=== PATIENT | male | born 1980 | race Caucasian/White ===

== ENCOUNTER 2018-05-27 04:55 | Emergency (ER) | payer BC, OTHER ==
[2018-05-27] MEDS ORDERED: METOCLOPRAMIDE 5 MG/ML 2 ML VIAL IVP STA (05:29)
[2018-05-27] MEDS ORDERED: diphenhydrAMINE 50 MG/ML 1 ML VIAL IVP STA (05:29)
[2018-05-27] MEDS ORDERED: KETOROLAC 30 MG/ML 1 ML VIAL IVP STA (05:29)
--- NOTE | 2018-05-27 05:45 | CT ---
EXAMINATION TYPE: CT brain wo con DATE OF EXAM: 05/27/2018 COMPARISON: 05/07/2013 HISTORY: Headache CT DLP: 1072.30 mGycm. Automated Exposure Control for Dose Reduction was Utilized. TECHNIQUE: CT scan of the head is performed without contrast. FINDINGS: Ventricles of normal size. There is no mass effect nor midline shift. There is no sign of i ntracranial hemorrhage. The calvarium is intact. IMPRESSION: Negative CT scan of the brain. No change.
--- NOTE | 2018-05-27 06:57 | ED ---
Headache HPI - General Chief Complaint: Headache Stated Complaint: headache Time Seen by Provider: 05/27/18 05:15 Mode of arrival: ambulatory Limitations: no limitations - History of Present Illness Initial Comments: This patient is a 37-year-old man who presents to be evaluated for headache. He has had symptoms going on 3 days now. He indicates the pain is at the left temporal area. It is severe, constant, throbbing in nature. He states that initially it was relieved when he was taking ibuprofen and a sinus pill. He states that the pain would go away for a few hours but then recur and then it would be relieved with medication again. He states that over the last night the home treatment stopped working and now he has had constant pain. He has not had fever or chills. No neck pain or stiffness. No neurologic symptoms. MD Complaint: headache Onset/Timin -: days(s) Onset Description: gradual, at rest Location: left, temporal Severity: severe Quality: throbbing Consistency: constant Improves With: medication, movement Worsens With: none Context: occurred at rest Associated Symptoms: nausea Treatments Prior to Arrival: Ibuprofen, other (Sinus medication) - Related Data Previous Rx's Medication Instructions Recorded Metoclopramide [Reglan] 10 mg PO TID PRN #12 tab 05/27/18 Allergies Allergy/AdvReac Type Severity Reaction Status Date / Time No Known Allergies Allergy Verified 05/27/18 05:03 Review of Systems ROS Statement: Those systems with pertinent positive or pertinent negative responses have been documented in the HPI. ROS Other: All systems not noted in ROS Statement are negative. Constitutional: Denies: fever, chills, weakness Eyes: Denies: vision change ENT: Denies: ear pain, congestion Respiratory: Denies: cough, dyspnea Cardiovascular: Denies: chest pain, syncope Gastrointestinal: Reports: nausea. Denies: abdominal pain, vomiting Musculoskeletal: Denies: back pain Skin: Denies: rash Neurological: Reports: headache. Denies: weakness, numbness, paresthesias, confusion Past Medical History Past Medical History: No Reported History History of Any Multi-Drug Resistant Organisms: None Reported Past Surgical History: No Surgical Hx Reported Past Psychological History: No Psychological Hx Reported Smoking Status: Current every day smoker Past Alcohol Use History: Rare Past Drug Use History: None Reported General Exam Limitations: no limitations General appearance: alert, in no apparent distress Head exam: Present: atraumatic, normocephalic Eye exam: Present: normal appearance, PERRL, EOMI. Absent: scleral icterus, conjunctival injection, nystagmus ENT exam: Present: normal oropharynx Neck exam: Present: normal inspection, full ROM. Absent: tenderness, meningismus Respiratory exam: Present: normal lung sounds bilaterally. Absent: respiratory distress, wheezes, rales, rhonchi, stridor Cardiovascular Exam: Present: regular rate, normal rhythm, normal heart sounds Back exam: Present: normal inspection, full ROM Neurological exam: Present: alert, oriented X3, CN II-XII intact, normal gait. Absent: motor sensory deficit Skin exam: Present: warm, dry, intact, normal color. Absent: rash Course Vital Signs 05/27/18 05:00 Temperature 98.4 F Pulse Rate 93 Respiratory 20 Rate Blood Pressure 133/95 O2 Sat by Pulse 97 Oximetry Medical Decision Making - Medical Decision Making Patient's 37-year-old man with headache. He has had resolution with medications and the computed tomography scan is negative. Patient declines further study and states she wants go home and sleep. Did discuss importance of further evaluation and follow up with neurology should any symptoms recur. Disposition Clinical Impression: Headache Disposition: HOME SELF-CARE Condition: Good Instructions: Acute Headache (ED) Prescriptions: Metoclopramide [Reglan] 10 mg PO TID PRN #12 tab PRN Reason: Headache Is patient prescribed a controlled substance at d/c from ED?: No Referrals: Mary Mathias MD [Primary Care Provider] - 1-2 days Cristina Melo MD [STAFF PHYSICIAN] - 1-2 days
[2018-05-27 07:12] VITALS: BP 111/61; PULSE 83; RESP 18; TEMP 98
== END 2018-05-27 07:12 | disposition home or self-care (01) ==
LOC: EC 04:55
DX: R51 Headache (principal); R11.0 Nausea; F17.200 Nicotine dependence, unspecified, uncomplicated
CPT/HCPCS: 70450; 96374; 96375; 99284

== ENCOUNTER 2019-01-03 13:12 | Emergency (ER) | payer OTHER ==
[2019-01-03 13:21] VITALS: TEMP 98.1
[2019-01-03 13:43] VITALS: RESP 18
--- NOTE | 2019-01-03 13:58 | ED ---
General Adult HPI - General Chief complaint: Neuro Symptoms/Deficit Stated complaint: lt sided facial numbness, hand tingling Time Seen by Provider: 01/03/19 13:43 Source: patient, RN notes reviewed Mode of arrival: ambulatory Limitations: no limitations - History of Present Illness Initial comments: Patient is a pleasant 38-year-old male presenting to the emergency Department with complaints of paresthesias. Onset of symptoms was around 9:30 this mo rning. Patient had paresthesias of his left shoulder region. Patient states following this symptoms did extend towards the left face as well as left arm and fingers. Patient states symptoms have improved however not resolved. Patient denies having any weakness. No confusion. No speech problems. Patient does have a history of similar symptoms dozens of times previously however does not normally last this long. Patient did look in the mere and has not noticed any weakness of the face. Patient denies any weakness of the arm. Patient denies any pain. - Related Data Home Medications Medication Instructions Recorded Confirmed No Known Home Medications 01/03/19 01/03/19 Allergies Allergy/AdvReac Type Severity Reaction Status Date / Time No Known Allergies Allergy Verified 01/03/19 13:27 Review of Systems ROS Statement: Those systems with pertinent positive or pertinent negative responses have been documented in the HPI. ROS Other: All systems not noted in ROS Statement are negative. Constitutional: Denies: fever Eyes: Denies: eye pain, vision change ENT: Denies: ear pain Respiratory: Denies: dyspnea Cardiovascular: Denies: chest pain Endocrine: Denies: fatigue Gastrointestinal: Denies: vomiting Genitourinary: Denies: dysuria Musculoskeletal: Denies: back pain Skin: Denies: rash Neurological: Denies: headache, weakness, numbness, confusion Past Medical History Past Medical History: No Reported History History of Any Multi-Drug Resistant Organisms: None Reported Past Surgical History: No Surgical Hx Reported Past Psychological History: No Psychological Hx Reported Smoking Status: Current every day smoker Past Alcohol Use History: Rare Past Drug Use History: None Reported General Exam Limitations: no limitations General appearance: alert, in no apparent distress Head exam: Present: atraumatic, normocephalic Eye exam: Present: normal appearance, PERRL, EOMI. Absent: nystagmus ENT exam: Present: normal oropharynx Neck exam: Present: normal inspection Respiratory exam: Present: normal lung sounds bilaterally Cardiovascular Exam: Present: regular rate, normal rhythm GI/Abdominal exam: Present: soft. Absent: tenderness Extremities exam: Present: normal inspection, full ROM. Absent: tenderness Neurological exam: Present: alert, CN II-XII intact. Absent: motor sensory deficit Expanded Neurological exam: Present: protecting the airway Speech: Present: fluid speech Cranial nerves: EOM's Intact: Normal, Facial Sensation: Normal Cerebellar function: Finger to Nose: Normal Sensory exam: Upper Extremity Light Touch: Normal, Lower Extremity Light Touch: Normal Motor strength exam: RUE: 5, LUE: 5, RLE: 5, LLE: 5 Eye Response: (4) open spontaneously Motor Response: (6) obeys commands Verbal Response: (5) oriented Psychiatric exam: Present: normal affect, normal mood Skin exam: Present: normal color Course Vital Signs 01/03/19 01/03/19 01/03/19 13:18 13:30 16:30 Temperature 98.1 F Pulse Rate 88 79 59 L Respiratory 20 18 18 Rate Blood Pressure 150/91 138/74 102/61 O2 Sat by Pulse 99 94 L 98 Oximetry EKG Findings - EKG Comments: EKG Findings:: Normal sinus rhythm 81. HI 172. QRS 96. QT 364. QTC 422. Normal axis. Normal QRS. No acute ST change. Medical Decision Making - Medical Decision Making Patient reevaluated and further improved. Symptoms are near resolved. Patient reevaluated and still has no weakness. Patient and family updated on results and need for follow-up. - Lab Data Result diagrams: 01/03/19 13:39 01/03/19 13:39 Lab Results 01/03/19 01/03/19 01/03/19 Range/Units 13:39 13:39 13:39 WBC (3.8-10.6) k/uL RBC (4.30-5.90) m/uL Hgb (13.0-17.5) gm/dL Hct (39.0-53.0) % MCV (80.0-100.0) fL MCH (25.0-35.0) pg MCHC (31.0-37.0) g/dL RDW (11.5-15.5) % Plt Count (150-450) k/uL Neutrophils % % Lymphocytes % % Monocytes % % Eosinophils % % Basophils % % Neutrophils # (1.3-7.7) k/uL Lymphocytes # (1.0-4.8) k/uL Monocytes # (0-1.0) k/uL Eosinophils # (0-0.7) k/uL Basophils # (0-0.2) k/uL PT 10.4 (9.0-12.0) sec INR 1.0 (<1.2) APTT 26.0 (22.0-30.0) sec Sodium 141 (137-145) mmol/L Potassium 4.4 (3.5-5.1) mmol/L Chloride 108 H (98-107) mmol/L Carbon Dioxide 24 (22-30) mmol/L Anion Gap 9 mmol/L BUN 10 (9-20) mg/dL Creatinine 1.05 (0.66-1.25) mg/dL Est GFR (CKD-EPI)AfAm >90 (>60 ml/min/1.73 sqM) Est GFR (CKD-EPI)NonAf 90 (>60 ml/min/1.73 sqM) Glucose 90 (74-99) mg/dL Calcium 9.5 (8.4-10.2) mg/dL Total Bilirubin 0.4 (0.2-1.3) mg/dL AST 18 (17-59) U/L ALT 23 (21-72) U/L Alkaline Phosphatase 77 (38-126) U/L Creatine Kinase 185 H (55-170) U/L Troponin I <0.012 (0.000-0.034) ng/mL Total Protein 6.9 (6.3-8.2) g/dL Albumin 4.3 (3.5-5.0) g/dL 01/03/19 Range/Units 13:39 WBC 6.5 (3.8-10.6) k/uL RBC 4.96 (4.30-5.90) m/uL Hgb 15.2 (13.0-17.5) gm/dL Hct 45.1 (39.0-53.0) % MCV 90.8 (80.0-100.0) fL MCH 30.5 (25.0-35.0) pg MCHC 33.6 (31.0-37.0) g/dL RDW 13.7 (11.5-15.5) % Plt Count 216 (150-450) k/uL Neutrophils % 66 % Lymphocytes % 25 % Monocytes % 5 % Eosinophils % 2 % Basophils % 1 % Neutrophils # 4.3 (1.3-7.7) k/uL Lymphocytes # 1.6 (1.0-4.8) k/uL Monocytes # 0.4 (0-1.0) k/uL Eosinophils # 0.1 (0-0.7) k/uL Basophils # 0.0 (0-0.2) k/uL PT (9.0-12.0) sec INR (<1.2) APTT (22.0-30.0) sec Sodium (137-145) mmol/L Potassium (3.5-5.1) mmol/L Chloride (98-107) mmol/L Carbon Dioxide (22-30) mmol/L Anion Gap mmol/L BUN (9-20) mg/dL Creatinine (0.66-1.25) mg/dL Est GFR (CKD-EPI)AfAm (>60 ml/min/1.73 sqM) Est GFR (CKD-EPI)NonAf (>60 ml/min/1.73 sqM) Glucose (74-99) mg/dL Calcium (8.4-10.2) mg/dL Total Bilirubin (0.2-1.3) mg/dL AST (17-59) U/L ALT (21-72) U/L Alkaline Phosphatase (38-126) U/L Creatine Kinase (55-170) U/L Troponin I (0.000-0.034) ng/mL Total Protein (6.3-8.2) g/dL Albumin (3.5-5.0) g/dL - Radiology Data Radiology results: report reviewed (Computed tomography scan of the brain reveals no acute process), image reviewed (Chest x-ray shows no acute process) Disposition Clinical Impression: Paresthesia Disposition: HOME SELF-CARE Instructions (If sedation given, give patient instructions): Paresthesia (ED) Additional Instructions: Please follow-up with primary care physician this week. Return for weakness, confusion, speech problems, worsening symptoms or other concerns. Is patient prescribed a controlled substance at d/c from ED?: No Referrals: Mary Mathias MD [Primary Care Provider] - 1-2 days Time of Disposition: 16:40
[2019-01-03 14:34] LABS: Basophils % (A) 1 %; Eosinophils # (A) 0.1 k/uL (0-0.7); Eosinophils % (A) 2 %; HCT 45.1 % (39.0-53.0); HGB 15.2 gm/dL (13.0-17.5); Lymphocytes # (A) 1.6 k/uL (1.0-4.8); Lymphocytes % (A) 25 %; MCH 30.5 pg (25.0-35.0); MCHC 33.6 g/dL (31.0-37.0); MCV 90.8 fL (80.0-100.0); Monocytes # (A) 0.4 k/uL (0-1.0); Monocytes % (A) 5 %; Neutrophils # (A) 4.3 k/uL (1.3-7.7); Neutrophils % (A) 66 %; Platelet Count 216 k/uL (150-450); RBC 4.96 m/uL (4.30-5.90); RDW 13.7 % (11.5-15.5); WBC 6.5 k/uL (3.8-10.6)
--- NOTE | 2019-01-03 14:37 | CT ---
EXAMINATION TYPE: CT brain wo con DATE OF EXAM: 01/03/2019 COMPARISON: 05/27/2018 HISTORY: Left sided facial and arm numbness CT DLP: 1099.4 mGycm. Automated Exposure Control for Dose Reduction was Utilized. TECHNIQUE: CT scan of the head is performed without contrast. FINDINGS: There is no acute intracranial hemorrhage, mass effect, or midline shift identified. The ventricles and sulci are within normal limits in size. The globes are intact and the visualized sin uses are clear. IMPRESSION: No acute intracranial hemorrhage, mass effect, or midline shift is seen. If there is con cern for acute ischemia correlate with MRI as clinically warranted.
[2019-01-03 14:42] LABS: ALT 23 U/L (21-72); AST 18 U/L (17-59); Albumin 4.3 g/dL (3.5-5.0); Alkaline Phosphatase 77 U/L (38-126); Anion Gap 9 mmol/L; Blood Urea Nitrogen 10 mg/dL (9-20); Calcium 9.5 mg/dL (8.4-10.2); Carbon Dioxide 24 mmol/L (22-30); Chloride 108 mmol/L (98-107); Creatine Kinase 185 U/L (55-170); Glucose 90 mg/dL (74-99); Potassium 4.4 mmol/L (3.5-5.1); Sodium 141 mmol/L (137-145); Total Bilirubin 0.4 mg/dL (0.2-1.3); Total Protein 6.9 g/dL (6.3-8.2)
--- NOTE | 2019-01-03 14:43 | XR ---
EXAMINATION TYPE: XR chest 2V DATE OF EXAM: 01/03/2019 COMPARISON: NONE HISTORY: Altered mental status TECHNIQUE: Frontal and lateral views of the chest are obtained. FINDINGS: There is no focal air space opacity, pleural effusion, or pneumothorax seen. The cardiac silhouette size is within normal limits. The osseous structures are intact. IMPRESSION: No acute cardiopulmonary process.
[2019-01-03 14:58] LABS: Prothrombin Time 10.4 sec (9.0-12.0)
[2019-01-03 16:30] VITALS: BP 102/61; PULSE 59
== END 2019-01-03 17:18 | disposition home or self-care (01) ==
LOC: EC 13:12
DX: R20.2 Paresthesia of skin (principal); R20.0 Anesthesia of skin; F17.200 Nicotine dependence, unspecified, uncomplicated
CPT/HCPCS: 36415; 70450; 71046; 80053; 82550; 84484; 85025; 85610; 85730; 99284

== ENCOUNTER → 2022-10-28 | Outpatient (CLI) | payer OTHER ==
--- NOTE | 2022-10-28 11:25 | XR ---
EXAMINATION TYPE: XR cervical spine comp DATE OF EXAM: 10/28/2022 COMPARISON: None HISTORY: 42-year-old male M542, cervicalgia TECHNIQUE: 5 views FINDINGS: Mild facet and uncovertebral joint arthropathy lower cervical spine. Mild degenerative disc disease w ith prominent anterior endplate spondylosis C6-C7. Alignment is maintained. No predental space wideni ng or prevertebral soft tissue swelling. On the right, there is mild bony neuroforaminal narrowing at C6-C7 and to a lesser degree at C5-C6. On the left, there is moderate bony neuroforaminal narrowing at C6-C7. Normal odontoid view. IMPRESSION: Mild spondylotic change lower cervical spine. Particularly at C6-C7 where there is possible moderate left and mild right neuroforaminal narrowing.
== END | disposition home or self-care (01) ==
LOC: RADXRYALE 10:16
PROVIDERS: ATTEND Internal Medicine
DX: M47.812 Spondylosis without myelopathy or radiculopathy, cervical region (principal)
CPT/HCPCS: 72050

== ENCOUNTER → 2023-08-30 | Outpatient (CLI) | payer OTHER ==
--- NOTE | 2023-08-30 11:30 | XR ---
EXAMINATION TYPE: XR lumbosacral spine 5 views DATE OF EXAM: 08/30/2023 Comparison: 07/04/2014 Clinical History: 43-year-old male [id number] LT SCIATICA Findings: Facet arthropathy lower lumbar spine. Moderate degenerative disc disease throughout, progressed from 07/04/2014 with greater degree of disc space narrowing and endplate spondylosis. Moderate degenerativ e disc disease progressed at L5-S1 as well. Vertebral body heights are preserved and alignment is suleman ntained. There is a dextroconvex scoliosis of the lumbar spine with 5 lumbar type vertebral bodies. B ulky bridging left lateral endplate spondylosis at L2-L3. Impression: Progressive degenerated dextroconvex scoliosis lumbar spine. Moderate multilevel degenerative disc di sease throughout. Facet arthropathy lower lumbar spine. No vertebral compression collapse or malalign ment.
== END | disposition home or self-care (01) ==
LOC: RADXRYALE 10:54
PROVIDERS: ATTEND Internal Medicine
DX: M51.16 Intervertebral disc disorders with radiculopathy, lumbar region (principal); M47.26 Other spondylosis with radiculopathy, lumbar region; M41.86 Other forms of scoliosis, lumbar region
CPT/HCPCS: 72110

== ENCOUNTER → 2024-08-22 | Outpatient (CLI) | payer OTHER ==
--- NOTE | 2024-08-22 22:15 | MR ---
EXAMINATION TYPE: MR lumbar spine wo con DATE OF EXAM: 08/22/2024 7:39 PM COMPARISON: None. CLINICAL INDICATION: Male, 44 years old with history of M54.50, M54.16, Low back pain into both sides x18 months TECHNIQUE: Multiplanar, multisequence images of the lumbar spine were acquired. IV Contrast: mL (None, if empty) FINDINGS: Cord ends at the T12-L1 L5-S1: Mild disc space narrowing is present. Facet hypertrophy is present. No AP or lateral spinal ca nal narrowing evident. There is severe right and moderate left foraminal narrowing. Correlate for rig ht S1 radicular symptoms. Superior endplate Schmorl's node may be present. Modic type II degenerative endplate changes are present. L4-L5: No focal disc herniation or significant disc bulge. No spinal canal stenosis. Neural foramen are patent. L3-L4: No focal disc herniation or significant disc bulge. No spinal canal stenosis. Moderate left f oraminal stenosis is present. Right foramen is patent. L2-L3: There is narrowing of disc height. Residual disc bulge is moderate anterior thecal sac flatten ing. No AP spinal canal stenosis is present. No spinal canal stenosis. Moderate left foraminal stenos is is present. Right foramen is patent. Modic type II degenerative endplate changes are present. L1-L2: Small left paracentral subligamentous disc herniation is present with mild anterior thecal sac compression. No AP spinal canal stenosis present. Neural foramen are patent. No spinal canal stenos is. Neural foramen are patent. T12-L1: Broad-based right paracentral disc bulge is present with anterior thecal sac compression. No AP spinal canal stenosis. Neural foramen are patent. IMPRESSION: 1. Severe right foraminal stenosis L5-S1. Correlate with right S1 radicular symptoms. 2. Moderate left foraminal stenosis at L3-4 and L2-3. 3. Mild disc bulging present at T12-L1 and L2-3. 4. Small left paracentral subligamentous disc herniation L1-2 with mild anterior thecal sac compressi on. 5. Chronic endplate changes L2-3 and L5-S1 [facility], Workstation: [facility], 08/22/2024 10:12 PM
== END | disposition home or self-care (01) ==
LOC: RADMRIMAIN 18:41
PROVIDERS: ATTEND Orthopaedic Surgery
DX: M48.061 Spinal stenosis, lumbar region without neurogenic claudication (principal); M51.16 Intervertebral disc disorders with radiculopathy, lumbar region
CPT/HCPCS: 72148

== ENCOUNTER → 2024-10-09 | Outpatient (CLI) | payer OTHER ==
--- NOTE | 2024-10-10 23:40 | MR ---
EXAMINATION TYPE: MR lumbar spine wo/w con DATE OF EXAM: 10/09/2024 7:20 PM COMPARISON: MRI lumbar spine 08/22/2024, lumbosacral spine radiograph 05/11/2024, 08/30/2023 CLINICAL INDICATION: Male, 44 years old with history of M54.50,M54.16,M41.86, pain and numbness for s everal years that travels down both legs IV Contrast: 13ml cc Gadobutrol (None if empty) TECHNIQUE: Multiplanar, multisequence images of the lumbar spine were acquired without and with 13ml mL intraven ous Gadobutrol gadolinium contrast. T12-L1: Broad-based disc bulge with mild effacement of anterior thecal sac. No significant central ca nal stenosis. Bilateral facet arthropathy. The neural foramina are patent bilaterally. L1-L2: Disc height loss with vacuum disc disease. Left paracentral disc protrusion with annular tear results in mild effacement of the anterior thecal sac. No significant central canal stenosis. Bilater al facet arthropathy. The right neural foramen is patent. Minimal left neural foraminal narrowing. L2-L3: Disc height loss. Central disc protrusion with annular tear and mild effacement of anterior th ecal sac. No significant central canal stenosis. Bilateral facet arthropathy. The right neural forame n is patent. Mild left neural foraminal stenosis. L3-L4: Disc height loss with vacuum disc disease. Diffuse disc bulge with mild effacement of the intr athecal sac. No significant central canal stenosis. Bilateral facet arthropathy with moderate left ne ural foraminal stenosis. The right neural foramen is patent. L4-L5: Disc height loss with vacuum disc disease. Diffuse disc bulge with minimal effacement of the i ntrathecal sac. No significant central canal stenosis. Bilateral facet arthropathy. No significant ne ural foraminal stenosis. L5-S1: Grade 1 anterolisthesis with bilateral pars defects and uncovering of the disc. Disc height lo ss with vacuum disc disease. Diffuse disc bulge with mild effacement of the anterior thecal sac. No s ignificant central canal stenosis. Bilateral facet arthropathy. Moderate left and [id number] right neural foraminal stenosis. Lumbar segments are intact. Similar dextro scoliotic curvature of the lumbar spine with apex at L2-L3 again. Large left lateral osteophyte at L2-L3. Multilevel anterior osteophytosis. Type I Modic zazueta es involving the endplates around the L3-L4 disc with associated hyperintense STIR signal. Type II Mo dic changes involving the endplates surrounding the L2-L3 and L5-S1 disc. No paraspinal masses are id entified. Conus medullaris has a normal appearance. IMPRESSION: 1. Overall similar examination with moderate multilevel degenerative disc disease and facet arthropa thy. Large left lateral osteophyte at L2-L3. Moderate to severe right neural foraminal stenosis again at L5-S1. Disc protrusions at L1-L2 and L2-L3 again. 2. Similar dextroscoliotic curvature of the lumbar spine with apex at L2-L3. 3. Similar grade 1 anterolisthesis of L5 on S1 with bilateral pars defects. 4. Type II Modic changes at L2-L3 and L5-S1 with type I Modic changes representing edema at L2-L3 robe guadalupe. [facility], , 10/10/2024 11:38 PM
== END | disposition home or self-care (01) ==
LOC: RADMRIMAIN 18:18
PROVIDERS: ATTEND Orthopaedic Surgery
DX: M51.16 Intervertebral disc disorders with radiculopathy, lumbar region (principal); M47.26 Other spondylosis with radiculopathy, lumbar region; M41.86 Other forms of scoliosis, lumbar region; M43.17 Spondylolisthesis, lumbosacral region; R60.9 Edema, unspecified; M99.73 Connective tissue and disc stenosis of intervertebral foramina of lumbar region
CPT/HCPCS: 72158; A9585

== ENCOUNTER → 2024-10-09 | Outpatient (CLI) | payer OTHER ==
[2024-10-09 09:22] VITALS: BP 112/77; PULSE 68; RESP 16; TEMP 97.5
--- NOTE | 2024-10-09 15:32 | P.PAINPG ---
PQRS Measure Charge Sheet Comment: HISTORY OF PRESENT ILLNESS: A 44 yr old male as a referral from Dr Mathias/ Benito Arreguin NPC presents today w severe and chronic LBP > 2 yrs secondary to radiculopathy, spondylosis and facet arthropathy without myelopathy for evaluation. Pt states pain level is provoked at 9 /10 in intensity, intermittent, localized in the lower lumbar spine, predominantly axial, sharp in character w occasional shooting pain towards the LLE. Pain is provoked by laying supine or standing for periods > 20 min. Pain is alleviated by PT x 6 wks which ended in Jul 2024, physician guided home exercises every other day since Jul 2024, heat, medications, repositioning and rest . Oswestry axial pain score at 25. PMH: OA PSH: Denies SH: Daily tobacco use, Rare ETOH use, No illicit drug use FH: Non contributory All: See list Meds: See list incl Neurontin, Flexeril, Celebrex, Ibu REVIEW OF ORGAN SYSTEMS: CONSTITUTIONAL: No fevers or chills. No recent weight loss. NEUROLOGICAL: + numbness and tingling along the distal extremities. No seizure disorders or headaches. MUSCULOSKELETAL: + pain PSYCHIATRIC: Denies current depression or suicidal thoughts. Physical Examinations : Constitutional : Cooperative , not in acute distress . Neurologic : Cranial nerve II to XII intact. No focal neurological deficits. Psychiatric : alert & oriented x 3. Matching mood & appropriate affect. Judgment & insight intact. Musculoskeletal : Cervical Spine Motor strength in the deltoid and biceps: Normal right side. Normal Left side Motor strength biceps and the wrist extensors: Normal right side . Normal left side Motor strength in the triceps muscle: Normal right side. Normal left side Deep tendon reflexes: Normal at the biceps. Normal at Brachioradialis. Normal at triceps Vertebral body tenderness to deep palpation over Cervical facet loading test: positive bilaterally Spurling test: positive bilaterally Neck distraction test: positive bilaterally Kandace sign: positive bilaterally Lumbar spine Motor strength lower extremities ,thigh and legs 5/5 Right side , 5/5 Left side Deep tendon reflexes : Normal Knee Jerk. Normal Ankle Jerk Vertebral body tenderness over L5 Sanchez Test positive Lumbar facet Loading Test: positive Right / positive Left Range of motion of the lumbar spine Flexion 30 degrees, extension 10 degrees Straight Leg Raise test: Left> Right positive at < degrees Suzan test: positive right / positive left. Severe tenderness over the Sacroiliac joint on the Right / Left sides Gaenslen test: positive bilaterally Seated flexion test: positive bilaterally. Sacral spine : Severe tenderness over the Sacroiliac joint: right side / left side Range of motion: Flexion of the lumbar spine <60 degrees Range of motion: Extension of the lumbar spine <20 degrees Gaenslen's Test positive Suzan test: positive right side / left side Thigh Thrust Test Sacral Thrust Test Imaging: MRI non contrast of the lumbar spine from 08/22/2024 reviewed Assessment/ Plan : L L1-L2 radiculopathy, L5-S1 facet arthropathy, Levoscoliosis Recommendation of KAYLEEN L5-S1 #1. Risks, benefits of procedure discussed and p atient verbalized understanding. Admits to anti- coagulant use or medical history of diabetes. Protocol for discontinuation/ continuation of medications myriam procedure discussed. All questions answered. I have spent greater than 30 minutes on patient care today. Dr Rojo was available by phone for the evaluation of this patient. The time was used to review the medical records including relevant urine studies and Prescription history (MAPs), review of the available imaging, evaluation and examination of the patient, coordination of care with the medical staff and if applicable referring physicians, as well as creation of the medical record PQRS Narrative: Smoking Status Current every day smoker Home Medications: Ambulatory Orders Cyclobenzaprine [Flexeril] 10 mg PO TID PRN 10/09/24 Ibuprofen [Motrin] 800 mg PO Q8H PRN 10/09/24 Controlled Substance Measures - Controlled Substance Measures Is patient prescribed a controlled substance at discharge?: No
== END ==
LOC: PNWHC3 08:51
PROVIDERS: ATTEND Specialist
DX: M47.27 Other spondylosis with radiculopathy, lumbosacral region (principal); M41.86 Other forms of scoliosis, lumbar region; F17.210 Nicotine dependence, cigarettes, uncomplicated
CPT/HCPCS: 99211

== ENCOUNTER → 2024-10-12 | Outpatient (CLI) | payer OTHER ==
--- NOTE | 2024-10-14 15:01 | MR ---
EXAMINATION TYPE: MR cspine/tspine wo/w con DATE OF EXAM: 10/12/2024 9:53 PM COMPARISON: None. CLINICAL INDICATION: Male, 44 years old with history of M54.2, Back, shoulder, arm pain with numbness TECHNIQUE: Multiplanar multiecho imaging on a 3.0 Kelly magnet is performed through the cervical spin e. IV Contrast: 13 ml mL Gadobutrol (None, if empty) FINDINGS: The craniovertebral junction is normal. Vertebral body alignment has some exaggerated kyph osis in the upper cervical spine centered at approximately C4. C7-T1: Broad-based disc bulge is present with anterior thecal sac flattening. This may have some mil d cord contact. No deformity is evident. Bilateral foraminal stenosis from uncovertebral joint hypert rophy is present.. C6-7: There is a moderately large left paracentral disc herniation with moderate anterior thecal sac compression. Cord deformity is present on the left. There is severe left foraminal stenosis. Moderate right foraminal narrowing from uncovertebral joint hypertrophy is present. C5-6: Mild left paracentral disc bulge is present with anterior thecal sac compression. No AP spinal canal stenosis is present. Neural foramen are narrowed. C4-5: No focal disc herniation or significant disc bulge is evident. No spinal canal stenosis or kaykay ral foraminal stenosis is present. C3-4: Mild disc bulge and anterior thecal sac flattening. No cord contact is evident. Moderate left f oraminal narrowing from uncovertebral joint hypertrophy is present.. C2-3: No focal disc herniation or significant disc bulge is evident. No spinal canal stenosis or kaykay ral foraminal stenosis is present. No suspicious enhancement is evident. IMPRESSION: 1. Large left paracentral disc herniation C6-7 cord contact and deformity. 2. Mild disc bulging without cord contact C3-4. 3. Mild left paracentral disc bulging without cord contact C5-6. 4. Broad-based disc bulge C7-T1 with mild thecal sac compression with some mild cord contact. EXAMINATION TYPE: MR longine/chicoine wo/w con DATE OF EXAM: 10/12/2024 9:53 PM COMPARISON: None. CLINICAL INDICATION: Male, 44 years old with history of M54.2, Back, shoulder, arm pain with numbness TECHNIQUE: Multiplanar, multiecho imaging on a 3.0 Kelly magnet is performed through the thoracic spi ne. IV Contrast: 13 ml mL Gadobutrol (None, if empty) FINDINGS: Spinal cord maintains normal signal through its visualized course. Vertebral body alignment is normal. Vertebral body heights are preserved. Disc heights are preserved. Disc hydration levels are preserved. T12-L1: Mild disc bulge with anterior thecal sac compression. No cord contact or spinal canal stenosi s is present. Neural foramen are patent. C7-T1: Some mild disc bulge is present without spinal canal stenosis. The cervical portion of the exa m this appeared to have some mild cord contact is not evident on the thoracic images. No spinal canal stenosis is evident. There is some subtle scoliosis present. Following contrast, no suspicious enhancement evident. IMPRESSION: 1. Mild disc bulging present at C7-T1 and T12-L1. No cord contact or stenosis evident. [facility], , 10/14/2024 2:59 PM
== END | disposition home or self-care (01) ==
LOC: RADMRIMAIN 19:55
PROVIDERS: ATTEND Orthopaedic Surgery
DX: M50.123 Cervical disc disorder at C6-C7 level with radiculopathy (principal); M51.15 Intervertebral disc disorders with radiculopathy, thoracolumbar region; M41.86 Other forms of scoliosis, lumbar region
CPT/HCPCS: 72156; 72157

== ENCOUNTER 2024-11-02 08:38 | Day surgery (SDC) | payer OTHER ==
[~2024-11-02 08:38] MED LIST: LACTATED RINGERS 1,000 ML IV SCH
[2024-11-02 09:56] VITALS: RESP 16; TEMP 97.6
[2024-11-02] MEDS ORDERED: IOPAMIDOL M300 15ML VIAL ONE (10:14)
[2024-11-02] MEDS ORDERED: methylPREDNISolone ACETATE 80 MG/ML 1 ML VIAL ONE (10:14)
--- NOTE | 2024-11-02 10:35 | P.PCN ---
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 3-lumbar spinal stenosis POSTOPERATIVE DIAGNOSIS: 1-lumbar degenerative disc disease. 2-lumbar spondylosis with facet arthropathy without myelopathy. 3-lumbar spinal stenosis. PROCEDURE Injection of radio contrast material into L5-S1 interspace, interpretation of epidurogram, injection of steroid at L5-S1 epidural space under fluoroscopic guidance. ANESTHESIA: Lidocaine 1% subcutaneously. In OR continuous pulse ox, EKG, blood pressure and verbal communication was maintained with the patient. EBL: Minimal PROCEDURE INDICATION: Before the procedure were discussed with the patient detailed procedure, alternatives, complications including infection, bleeding, nerve damage, paralysis all of which could be permanent. Patient understands and all questions were answered. PROCEDURE DESCRIPTION : After getting consent, patient in OR in prone position. Back was prepped with chlorhexidine and draped in sterile fashion. After injecting 10 mL of 1% lidocaine subcutaneously, a 20-gauge Tuohy needle was introduced at L5-S1 interspace with loss of resistance technique using a syringe filled with air. Negative CSF, negative blood, negative paresthesia. Needle position was confirmed with AP and lateral view of the fluoroscope. After repeat negative aspiration 2 mL of Omnipaque 200 water soluble contrast was injected. Contrast was noted in the epidural space. No contrast was noted into intrathecal or intravascular space. After repeat negative aspiration 6 mL solution was injected intermittently which consists of 5 mL of preservative-free normal saline mixed with 1 mL of 80 mg Depo-Medrol. Needle was withdrawn intact. Skin was cleansed and Band-Aids was applied. DISPOSITION / PLANS: The patient tolerated the procedure well. No complication. The patient was placed in a supine position and transferred to the recovery area in a stable condition for observation. There was no evidence of lower extremity motor or sensory deficit after the procedure. Patient was discharged from the recovery room after meeting discharge criteria. Home discharge instructions were given to the patient by the staff. The patient was reexamined prior to discharge. The patient will schedule a follow up in the clinic in 2-4 weeks.
--- NOTE | 2024-11-02 10:37 | FL ---
EXAMINATION TYPE: FL guided pain mgmt statistic DATE OF EXAM: 11/02/2024 CLINICAL HISTORY: Low back pain. TECHNIQUE: Fluoroscopy. COMPARISON: None. FINDINGS: Fluoroscopic guidance was provided during pain relief procedure performed by Dr. Rojo . A total of 15 seconds of fluoroscopic time was utilized during the procedure and two spot images a re acquired. Images acquired shows needle localization . IMPRESSION: As Above. [facility], , 11/02/2024 10:35 AM
[2024-11-02 10:48] VITALS: BP 111/78; PULSE 71
== END 2024-11-02 10:57 | disposition home or self-care (01) ==
LOC: ORPAIN 08:38
PROVIDERS: ATTEND Pain Medicine Interventional Pain Medicine
DX: M47.816 Spondylosis without myelopathy or radiculopathy, lumbar region (principal); M51.369 Other intervertebral disc degeneration, lumbar region without mention of lumbar back pain or lower extremity pain; M48.061 Spinal stenosis, lumbar region without neurogenic claudication; Z79.1 Long term (current) use of non-steroidal anti-inflammatories (NSAID)
CPT/HCPCS: 62323; Q9967; J1010

== ENCOUNTER → 2024-11-16 | Outpatient (CLI) | payer OTHER ==
[2024-11-16 09:36] VITALS: BP 106/73; PULSE 77; RESP 19; TEMP 97.9
--- NOTE | 2024-11-16 14:20 | P.PAINPG ---
Objective - Vital Signs Vital signs: Intake & Output 11/15/24 11/16/24 11/16/24 18:59 06:59 18:59 Weight 131.542 kg PQRS Measure Charge Sheet Comment: HISTORY OF PRESENT ILLNESS: A 44 yr old male presents today w severe and chronic LBP > 2 yrs secondary to radiculopathy, spondylosis and facet arthropathy without myelopathy for evaluation s/p KAYLEEN L5-S1 #1. Pt states he experienced 75% pain relief x 2 wks s/p procedure. Pt states pain level is provoked at 5-6 /10 in intensity, intermittent, localized in the lower lumbar spine, predominantly axial, dull in character w occasional shooting pain towards the R flank. Pain is provoked by twisting. Pain is alleviated by PT x 6 wks which ended in Jul 2024, physician guided home exercises every other day since Jul 2024, heat, medications, repositioning and rest . Interventional procedures include KAYLEEN L5-S1 x1 Medications include Neurontin, Flexeril, Celebrex, Ibu REVIEW OF ORGAN SYSTEMS: CONSTITUTIONAL: No fevers or chills. No recent weight loss. NEUROLOGICAL: + numbness and tingling along the distal extremities. No seizure disorders or headaches. MUSCULOSKELETAL: + pain PSYCHIATRIC: Denies current depression or suicidal thoughts. Physical Examinations : Constitutional : Cooperative , not in acute distress . Neurologic : Cranial nerve II to XII intact. No focal neurological deficits. Psychiatric : alert & oriented x 3. Matching mood & appropriate affect. Judgment & insight intact. Musculoskeletal : Cervical Spine Motor strength in the deltoid and biceps: Normal right side. Normal Left side Motor strength biceps and the wrist extensors: Normal right side . Normal left side Motor strength in the triceps muscle: Normal right side. Normal left side Deep tendon reflexes: Normal at the biceps. Normal at Brachioradialis. Normal at triceps Vertebral body tenderness to deep palpation over Cervical facet loading test: positive bilaterally Spurling test: positive bilaterally Neck distraction test: positive bilaterally Kandace sign: positive bilaterally Lumbar spine Motor strength lower extremities ,thigh and legs 5/5 Right side , 5/5 Left side Deep tendon reflexes : Normal Knee Jerk. Normal Ankle Jerk Vertebral body tenderness over L5 Sanchez Test positive Lumbar facet Loading Test: positive Right / positive Left Range of motion of the lumbar spine Flexion 30 degrees, extension 10 degrees Straight Leg Raise test: Left> Right p ositive at < degrees Taut bands w twitch response over R L2- S1 Suzan test: positive right / positive left. Severe tenderness over the Sacroiliac joint on the Right / Left sides Gaenslen test: positive bilaterally Seated flexion test: positive bilaterally. Sacral spine : Severe tenderness over the Sacroiliac joint: right side / left side Range of motion: Flexion of the lumbar spine <60 degrees Range of motion: Extension of the lumbar spine <20 degrees Gaenslen's Test positive Suzan test: positive right side / l eft side Thigh Thrust Test Sacral Thrust Test Imaging: MRI non contrast of the lumbar spine from 08/22/2024 reviewed Assessment/ Plan : L L1-L2 radiculopathy, L5-S1 facet arthropathy, Levoscoliosis Recommendation of our TPIs L2-S1 #1. Risks, benefits of procedure discussed and patient verbalized understanding. All questions answered. I have spent greater than 30 minutes on patient care today. Dr Rojo was available by phone for the evaluation of this patient. The time was used to review the medical records including relevant urine studies and Prescription history (MAPs), review of the available imaging, evaluation and examination of the patient, coordination of care with the medical staff and if applicable referring physicians, as well as creation of the medical record PQRS Narrative: Smoking Status Current every day smoker Hx Alcohol Use (MH) No Home Medications: Ambulatory Orders Cyclobenzaprine [Flexeril] 10 mg PO TID PRN 10/09/24 Ibuprofen [Motrin] 800 mg PO Q8H PRN 10/09/24 diazePAM [Valium] 5 mg PO DAILY PRN 11/01/24 Controlled Substance Measures - Controlled Substance Measures Is patient prescribed a controlled substance at discharge?: No
== END ==
LOC: PNWHC3 09:02
PROVIDERS: ATTEND Specialist
DX: M47.27 Other spondylosis with radiculopathy, lumbosacral region (principal); M41.9 Scoliosis, unspecified; F17.210 Nicotine dependence, cigarettes, uncomplicated
CPT/HCPCS: 99211

== ENCOUNTER → 2024-12-06 | Outpatient (CLI) | payer OTHER ==
--- NOTE | 2024-12-06 14:33 | XR ---
EXAMINATION TYPE: XR ankle complete LT DATE OF EXAM: 12/06/2024 COMPARISON: NONE HISTORY: Pain TECHNIQUE: 3 views of the left ankle are submitted for evaluation. FINDINGS: There is no evidence for fracture or dislocation. Ankle mortise is intact. Well-corticated ossicle adjacent to the lateral malleolus. Soft tissue swelling over the lateral malleolus. IMPRESSION: 1. No evidence for acute fracture. 2. Moderate soft tissue swelling over the lateral malleolus. [facility], , 12/06/2024 2:31 PM
== END | disposition home or self-care (01) ==
LOC: RADXRYALE 14:07
PROVIDERS: ATTEND Internal Medicine
DX: M79.89 Other specified soft tissue disorders (principal)